=== PATIENT | male | born 1955 | race Caucasian/White ===

== ENCOUNTER → 2016-04-02 | Outpatient (CLI) | payer OTHER ==
[~2016-04-02] MED LIST: AMARYL PO; AMLODIPINE BESYL5 MG PO; ASPIRIN81 MG PO; ATORVASTATIN CA80 MG PO; EFFIENT10 MG PO; FENOFIBRATE200 M1 PO; FLUOXETINE HCL20 M1 PO; GABAPENTIN800 MG PO; HYDROCODON-ACE1 EAC5 PO; HYDROCODONE-APA1 T30 PO; KLONOPIN PO; KLONOPIN1 MG PO; LIPITOR PO; LIPITOR80 MG PO; LISINOPRIL10 MG PO; LISINOPRIL5 MG PO; METFORMIN HCL500 M1 PO; METFORMIN HCL850 MG PO; METOPROLOL SUCC25 MG PO; METOPROLOL SUCC50 MG PO; NIASPAN PO; NITROSTAT0.4 MG SL; NTG 0.4 MG/0.4 MG/M1 SL; PROTONIX PO; PROZAC PO; TRICOR PO
--- NOTE | ~2016-04-02 | XA32 ---
[facility] A Service of [facility] RADIOLOGY TEXT RESULTS PATIENT: YASH BOUDREAUX LOCATION: CIVR : 59 UNIT #: [id number] AGE: [address]: NATE MCKEON SEX: M ORDER DR: [id number] [place] [id number] [facility]. [place], [place] [address] [id number] O MR#: [id number] Acc #: [id number] NAME: YASH BOUDREAUX : 1955 SEX: M STUDY DATE/TIME: 04/02/2016 14:42 UNIT: CIVR ROOM: STUDY DESCRIPTION: XA Arthrogram Shoulder Lt Attending Physician: Nate Mckeon M.D. Primary Care Physician: No Primary Care Physician MEDICAL IMAGING REPORT This report is preliminary unless electronic signature is present EXAM Left shoulder arthrogram INDICATION Left shoulder pain. Patient reports that he injured his left shoulder last summer playing kickball. He reports decreased range of motion. He has had some PT but it is not helping his difficulty raising his arm over his head. PROCEDURE There risks, benefits, and alternatives to the procedure were explained to the patient, and a signed informed consent was obtained. Patient was placed supine on the angiographic table and was prepped and draped in usual sterile fashion. Time-out was performed as per protocol. Skin and these tissues were anesthetized with buffered lidocaine and a 22-gauge spinal needle was advanced into the joint space. Contrast was injected into the joint space which confirmed location. Needle was then removed and manual pressure was applied until hemostasis was obtained. Additional fluoroscopic images were obtained in both the abducted and adducted position. Total fluoroscopy time 0.9 minutes AK was 24 mGy. IMPRESSION Technically successful left shoulder arthrogram. Please see the separately dictated report of the MRI of the left shoulder for full description of the findings. Dictated by... Pily Scott M.D. [facility] A Service of [facility] RADIOLOGY TEXT RESULTS PATIENT: YASH BOUDREAUX LOCATION: CIVR : 59 UNIT #: [id number] AGE: [address]: NATE MCKEON SEX: M ORDER DR: THIS IS AN ELECTRONICALLY VERIFIED REPORT Pily Scott M.D. at 04/04/2016 5:27 PM AFF/aa TD: 04/04/2016 11:57 JOB #: [id number] MEDICAL IMAGING REPORT COPY
--- NOTE | ~2016-04-02 | MR190 ---
[facility] A Service of [facility] & [facility] RADIOLOGY TEXT RESULTS PATIENT: YASH BOUDREAUX LOCATION: CIVR : 59 UNIT #: [id number] AGE: [address]: NATE MCKEON SEX: M ORDER DR: [id number] [facility] [address] [place], [place] [address] [id number] O MR#: [id number] Acc #: [id number] NAME: YASH BOUDREAUX : 1955 SEX: M STUDY DATE/TIME: 04/02/2016 15:13 UNIT: [facility] ROOM: STUDY DESCRIPTION: MR Shoulder Arthrogram Lt Attending Physician: Nate Mckeon M.D. Ordering Physician: Physician Non-Staff Primary Care Physician: Generic Doctor Not In System MRI CENTER REPORT This report is preliminary unless electronic signature is present. EXAM MR arthrogram left shoulder HISTORY 60-year-old male injured left shoulder last summer playing kick ball and complains of decreased range of motion, shoulder pain. No improvement with physical therapy. COMPARISON Conventional arthrogram 04/02/2016 FINDINGS Routine MR arthrogram was performed of the left shoulder following intraarticular injection of dilute gadolinium. Examination demonstrates mild AC joint arthropathy with capsular hypertrophy. Minimal periarticular edema. Marrow signal within the proximal humerus and glenoid appears normal. Contrast distends the glenohumeral joint with abnormal communication to the subacromial-subdeltoid bursa through a full-thickness tear involving the anterior distal aspect of the supraspinatus tendon. The tear is estimated 2.3 cm medial to lateral by 2.6 cm AP dimension. There is also a partial-thickness delaminating component extending into the more posterior aspect of the supraspinatus tendon and this tear is estimated at just over a centimeter. There is also focal imbibition of contrast into the substance of the infraspinatus tendon with communication to a suspected intratendinous cyst along the infraspinatus tendon. The delaminating tear is estimated at about 11 mm in length and communicates to a 1.4 cm cystic appearing structure compatible with an intratendinous cyst. Teres minor and subscapularis tendons appear intact. No muscle atrophy or edema. Minimal degeneration of the superior labrum but no defined tear. The [facility] A Service of [facility] RADIOLOGY TEXT RESULTS PATIENT: YASH BOUDREAUX LOCATION: [facility] : 59 UNIT #: [id number] AGE: [address]: NATE MCKEON SEX: M ORDER DR: biceps anchor and long tendon biceps appears intact. There is suspected biceps tendinopathy. Deltoid and extraarticular soft tissues appear normal. IMPRESSION 1. 2.3 x 2.6 cm full-thickness tear involving the anterior distal insertion of the supraspinatus tendon. 2. Sizable partial-thickness articular-sided tear involving the more posterior supraspinatus tendon measuring well over a centimeter. 3. Partial-thickness delaminating tear undersurface infraspinatus tendon with communication to an intratendinous cyst. 4. Gpid-ki-xgaxerxo AC joint arthropathy with some periarticular edema and inflammation. 5. Mild biceps tendinopathy. Dictated by... Ej Freeman M.D. THIS IS AN ELECTRONICALLY VERIFIED REPORT Ej Freeman M.D. at 04/04/2016 10:25 AM Devora TD: 04/03/2016 11:21 JOB #: [id number] MRI CENTER REPORT COPY
== END | disposition home or self-care (01) ==
LOC: CIVR 13:33
DX: M75.122 Complete rotator cuff tear or rupture of left shoulder, not specified as traumatic (principal); M19.012 Primary osteoarthritis, left shoulder; M75.92 Shoulder lesion, unspecified, left shoulder
CPT/HCPCS: 73040; 73222; 77002; Q9967

== ENCOUNTER → 2016-05-09 | Day surgery (SDC) | payer OTHER ==
--- NOTE | ~2016-05-09 | OR ---
Unit #: [id number] #: [id number] Patient: YASH BOUDREAUX [id number] [address] [address] [id number] O MR#: [id number] NAME: YASH BOUDREAUX ROOM: Date of Procedure: 05/09/2016 Admission Date: 05/09/2016 Surgeon: Hudson Duran M.D. : 1955 Attending Physician: Hudson Duran M.D. Primary Care Physician: Generic Doctor Not In System OPERATIVE REPORT PREOPERATIVE DIAGNOSES 1. Back pain. 2. Radiculopathy. 3. Degenerative disk disease. 4. Degenerative spine disease. POSTOPERATIVE DIAGNOSES 1. Back pain. 2. Radiculopathy. 3. Degenerative disk disease. 4. Degenerative spine disease. PROCEDURE PERFORMED Lumbar epidural steroid injection with intravenous sedation and fluoroscopic guidance for needle localization. INDICATIONS FOR PROCEDURE The patient is a 60-year-old male with previously mentioned diagnosis. He had worsening back and bilateral lower extremity pain left greater than right. Epidural steroids in distant past have been quite helpful. He has been managed medically with a flare of the pain, we were able to settle with conservative measures. Decision was made to re-trial of an epidural steroid injection. Risks and benefits of all have been reviewed. DESCRIPTION OF PROCEDURE The patient was placed in a seated position. Standard monitors were applied. 2 mg of Versed were given for sedation and anxiolysis, which were adequate. Vital signs remained stable. Sterile prep and drape then of the lumbar area was performed. The skin then at the L4-L5 level was localized with 1% lidocaine. An 18-gauge Waviitead needle was then advanced via loss of resistance technique and fluoroscopic guidance in toward the epidural space. After confirming proper needle tip positioning with fluoroscopy and radiographic contrast, 80 mg of Depo-Medrol and 4 mL of 0.125% bupivacaine were deposited. The patient tolerated the procedure otherwise well and was discharged to the recovery room in stable condition. Dictated by... Hudson Duran M.D. LHP/modl Unit #: [id number] #: [id number] Patient: YASH BOUDREAUX TD: 05/10/2016 02:46 JOB #: [id number] OPERATIVE REPORT Page 1 of 1 X Hudson Duran MD X PROCEDURE OPERATIVE NOTE
== END | disposition home or self-care (01) ==
LOC: CCSC 10:17
DX: M51.16 Intervertebral disc disorders with radiculopathy, lumbar region (principal)
CPT/HCPCS: J1040; J2250

== ENCOUNTER 2016-08-19 00:14 | Observation (INO) | payer OTHER ==
--- NOTE | ~2016-08-19 | DS ---
Unit #: [id number] #: [id number] Patient: YASH BOUDREAUX [id number] [address] [address] [id number] I MR#: [id number] NAME: YASH BOUDREAUX ROOM: 547 Age: 61 Sex: M Admission Date: 08/19/2016 : 1955 Discharge Date: 08/20/2016 Attending Physician: Tyler Toussaint M.D. DISCHARGE SUMMARY DISCHARGE DIAGNOSES 1. Atypical chest pain, ruled out for acute coronary syndrome. 2. Abnormal Lexiscan Cardiolite. 3. Known history of coronary artery disease with a past history of inferior wall myocardial infarction and coronary artery stents approximately seven years ago. 4. Hypertension. 5. Hyperlipidemia. 6. Diabetes mellitus. 7. Tobacco abuse. 8. Peripheral artery disease. 9. Chronic obstructive pulmonary disease. DISCHARGE MEDICATIONS 1. Gabapentin 800 mg p.o. t.i.d. 2. Metformin 850 mg p.o. b.i.d. This is not to be resumed until August 23, 2016. 3. Atorvastatin 80 mg p.o. at bedtime. 4. Clonazepam 1 mg p.o. t.i.d. 5. Norvasc 10 mg p.o. daily. 6. Metoprolol succinate 50 mg tablet 1-1/2 tablets daily for a total of 75 mg daily. 7. Lisinopril 10 mg p.o. daily. 8. Aspirin 81 mg p.o. daily. 9. Hydrocodone 10/325 at 1 tab q.4 hours p.r.n. 10. Protonix 40 mg p.o. daily. 11. Nitroglycerin sublingual 0.4 mg q.5 minutes x3 p.r.n. chest pain. HOSPITAL COURSE This is a pleasant 61-year-old male who is typically followed by Dr. Sethi at [facility]. He states he follows with him at the [place] office. The patient has a known history of coronary artery disease with a history of RI and stent x2 in the past, as well as hypertension, hyperlipidemia, diabetes mellitus, chronic pancreatitis, COPD, and tobacco abuse. The patient presented to the hospital with complaints of atypical chest pain, left-sided chest wall, that had occurred at rest. Initial EKG showed no acute ischemia. Cardiac enzymes were negative. It was determined that, due to the patient's high risk profile, repeat ischemic workup was indicated, and the patient was scheduled for a Lexiscan Cardiolite, as well as 2D echocardiogram to rule out any worsening of his cardiovascular disease. The 2D echocardiogram showed mild concentric LVH global, ejection fraction of 50%, basal inferior akinesis, and mid inferior hypokinesis. Moderate eccentric posterior dilated mitral regurgitation was present and mild tricuspid Unit #: [id number] #: [id number] Patient: YASH BOUDREAUX regurgitation. RVSP was 30 mmHg. The patient also underwent Lexiscan adenosine stress test which was abnormal. The patient was scheduled for cardiac catheterization with Dr. Wang today. Results are as follows: LV end-diastolic pressure is 16 mmHg. He has mildly reduced LV function with an LVEF of 45% to 50%. Inferior diaphragmatic wall hypokinesis is noted, but mild nonobstructive disease involving the LAD and the left circumflex. Patent stents in the right coronary artery and the distal RCA stent has 20% in-stent stenosis. Medical therapy was recommended. His hospital course has been otherwise uneventful. CONSULTANTS None. DIAGNOSTIC STUDIES LABORATORY: Glucose 161, BUN 13, creatinine 0.8, sodium 139, potassium 3.7, chloride 105, and CO2 of 25. Troponins have been less than 0.03. Hemoglobin 14.3, hematocrit 43.6, WBC 11.1, and platelet count 125,000. D-dimer 331. IMAGING: Chest x-ray shows heart size and vascularity are normal, lungs are clear, and no active disease. It does show postoperative changes in the C-spine. CARDIOLOGY: EKG shows sinus bradycardia at a rate of 51 beats per minute. There are Q waves present in inferior leads. Nonspecific T wave abnormality is noted. PHYSICAL EXAMINATION GENERAL: This is a pleasant 61-year-old male in no acute distress. VITAL SIGNS: Temperature 98.2, respiratory rate 18-20, pulse 58-60, and blood pressure is 116/74 to 141/86. HEENT: Head is atraumatic and normocephalic. Pupils are equal and round. NECK: Trachea is midline. No thyromegaly, no lymphadenopathy, no JVD. Carotid upstrokes are normal. CARDIOVASCULAR: S1 and S2. No murmur, gallop, or rub. LUNGS: Clear to auscultation. No adventitious breath sounds. No rales, no rhonchi, no wheezes. ABDOMEN: Soft, nontender, and nondistended. Bowel sounds are present. EXTREMITIES: Pulses are palpable. No clubbing, cyanosis, or edema. NEUROLOGIC: He is awake, alert, and oriented. He moves all extremities equally and follows commands with ease. SKIN: Right femoral artery cath site clean, dry, and intact. No signs or symptoms of bleeding or hematoma noted. Site is soft. DISCHARGE INSTRUCTIONS Patient has been seen and evaluated today by myself, as well as Dr. Wang. He underwent cardiac catheterization today which only showed mild obstructive disease involving the LAD and the left circumflex. His stents in the right coronary artery were patent other than the distal RCA stent with 20% in-stent restenosis. His ejection fraction is 45% to 50% per cardiac catheterization and LV end-diastolic pressure is 16 mmHg. Recommendations were suggested to continue with aggressive risk factor modification. We also discussed the importance of smoking cessation with the patient. He denies any chest pain, and the patient is free from any Unit #: [id number] #: [id number] Patient: YASH BOUDREAUX arrhythmias. Dr. Wang states he is free to be discharged home after cath checks are complete which should be after 5 p.m. today. The patient was instructed regarding post-cardiac catheterization instructions, as well as signs and symptoms regarding his cath site. The patient was informed to follow up with his primary care physician in one week, and he will up with Dr. Sethi with [facility], who is his primary rivet passer. Patient was also advised to return to the emergency room if further chest pain occurs or if he has sudden onset bleeding or swelling from his right cath site. He verbalized all instructions willing and agreeable to proceed. Dictated by... Verna Key A.P.R.N. for Shellie Chung/federico TD: 08/20/2016 19:46 JOB #: [id number] DISCHARGE SUMMARY Page 1 of 1 X Verna Key RAIL ASSEMBLER X DISCHARGE SUMMARY
--- NOTE | ~2016-08-19 | CR72 ---
[facility] A Service of [facility] RADIOLOGY TEXT RESULTS PATIENT: YASH BOUDREAUX LOCATION: [facility] 547-01 : [birth year] UNIT #: [id number] AGE: [address]: Tyler Toussaint MD SEX: M ORDER DR: [id number] [facility] [address] [facility] [place], [place] [address] [id number] I MR#: [id number] Acc #: [id number] NAME: YASH BOUDREAUX : 1955 SEX: M STUDY DATE/TIME: 08/19/2016 0:27 UNIT: [facility] ROOM: [facility] STUDY DESCRIPTION: CR Chest Single View Portable Attending Physician: Tylre Toussaint M.D. Ordering Physician: Ed Doctor [id number] [facility] Primary Care Physician: Primary Care Physician No MEDICAL IMAGING REPORT This report is preliminary unless electronic signature is present EXAM Portable chest HISTORY Chest pain for 3 days with shortness of air. COMPARISON 05/09/2013 FINDINGS A portable view of the chest was obtained. The heart size and vascularity are normal and the lungs are clear. The bones are unremarkable except for postoperative changes in the cervical spine. IMPRESSION No active disease. Dictated by... Florentin Galeas M.D. THIS IS AN ELECTRONICALLY VERIFIED REPORT Florentin Galeas M.D. at 08/19/2016 1:35 PM Maureen TD: 08/19/2016 12:44 JOB #: [id number] MEDICAL IMAGING REPORT Page 1 of 1 COPY
--- NOTE | ~2016-08-19 | TH ---
Unit #: [id number] #: [id number] Patient: YASH BOUDREAUX [id number] [address] [address] [id number] I MR#: [id number] NAME: YASH BOUDREAUX : 1955 SEX: M STUDY DATE/TIME: 08/19/2016 UNIT: [id number] ROOM: 547 STUDY DESCRIPTION: Cardiolite imaging. Attending Physician: Tyler Toussaint M.D. Primary Care Physician: No Primary Care Physician CARDIOLOGY REPORT EXAM Cardiolite imaging. INDICATION FOR STUDY Chest discomfort. SUMMARY The patient underwent nuclear stress test and received a resting dose of 9 mCi and stress dose 28.3 mCi. On gated imaging the patient appears to have severely depressed left ventricular ejection fraction. The patient's left ventricular ejection fraction is 31%. The patient also appears to have baseline inferior akinesis and mid to distal inferior wall hypokinesis. On perfusion imaging, comparing rest and stress images, there appears to be a decreased tracer uptake seen in the inferior wall on the rest images, which gets worse on stress images with wall motion abnormality on gated imaging involving the inferior wall. CONCLUSION 1. Moderate sized inferior wall infarct with moderate sized tru-infarct ischemia. 2. Severely depressed left ventricular ejection fraction, 31%. 3. ECG portion dictated separately. 4. Clinical correlation is needed. Dictated by... Shellie Chung/kentrell TD: 08/20/2016 08:36 JOB #: [id number] Unit #: [id number] #: [id number] Patient: YASH BOUDREAUX CARDIOLOGY REPORT Page 1 of 1 X GIOVANY CREWS MD CARDIOLOGY REPORT
--- NOTE | ~2016-08-19 | EKG ---
PATIENT: YASH BOUDREAUX UNIT #: [id number] Ventricular Rate: 51 BPM Atrial Rate: 51 BPM P-R Interval: 142 ms QRS Duration: 96 ms Q-T Interval: 442 ms QTC Calculation(Bezet): 407 ms P [place]: 51 degrees Calculated R [place]: 69 degrees Calculated T [place]: -54 degrees Diagnosis Line: Sinus bradycardia Diagnosis Line: Inferior infarct , age undetermined Diagnosis Line: T wave abnormality, consider lateral ischemia Diagnosis Line: Abnormal ECG Diagnosis Line: When compared with ECG of 19-AUG-2016 12:38, Diagnosis Line: Inferior infarct is now Present Diagnosis Line: Nonspecific T wave abnormality now evident in Diagnosis Line: Anterior leads Diagnosis Line: Confirmed by BEN MCKEON MD ([id number]) on 08/22/2016 Diagnosis Line: 7:56:02 AM INTERPRETING MD: MIKE WISEMAN
--- NOTE | ~2016-08-19 | EKG ---
PATIENT: YASH BOUDREAUX UNIT #: [id number] Ventricular Rate: 73 BPM Atrial Rate: 73 BPM P-R Interval: 132 ms QRS Duration: 90 ms Q-T Interval: 384 ms QTC Calculation(Bezet): 423 ms P [place]: 59 degrees Calculated R [place]: 41 degrees Calculated T [place]: -58 degrees Diagnosis Line: Normal sinus rhythm Diagnosis Line: Possible Inferior infarct (cited on or before Diagnosis Line: 09-MAY-2013) Diagnosis Line: Abnormal ECG Diagnosis Line: When compared with ECG of 25-MAR-2015 03:55, Diagnosis Line: Premature ventricular complexes are no longer Diagnosis Line: Present Diagnosis Line: Confirmed by RONNELL TRUJILLO MD ([id number]) on Diagnosis Line: 08/20/2016 4:02:23 PM INTERPRETING MD: RONNIE WISEMAN
--- NOTE | ~2016-08-19 | CO ---
Unit #: [id number] #: [id number] Patient: YASH BOUDREAUX [id number] [address] [place], [place] [address] [id number] MR#: [id number] NAME: YASH BOUDREAUX ROOM: 547 Age: 61 Sex: M Admission Date: 08/19/2016 : 1955 Attending Physician: Tyler Toussaint M.D. Primary Care Physician: No Primary Care Physician Consultation Date: 08/19/2016 CONSULTATION REPORT REASON FOR CONSULT Chest pain. HISTORY OF PRESENT ILLNESS This is a 61-year-old male who is typically followed by (1) at [facility]. The patient has a known history of coronary artery disease with a history of myocardial infarction and stents times two, hypertension, hyperlipidemia, diabetes mellitus, chronic pancreatitis. He had a cardiac catheterization at [place] in 06/2009, which showed a left main normal, LAD proximal 20%, 30% mid LAD and in D1 there is a 50% ostial stenosis. Circumflex mid was 30% proximal. RCA 30% proximal. Diffuse 90% in-stent restenosis of the distal RCA stent site. The ostial PDA has a 70% stenosis in the ostium, fully covered by the previously deployed stent. Ejection fraction at that time was 30%. The patient did receive PTCA of the distal RCA with a drug-eluting stent at that time in the distal RCA and a PTCA of the ostial PDA. The patient also has a past medical history significant for anxiety, lumbar canal stenosis, as well as some PAD. The patient states he was at home in his typical state of health until yesterday, when he began to notice pain in his anterior chest, initially described as midsternal. This occurred at rest, with radiation into his left chest wall. He does report that he has had a cough as well for the last two to three days, which has been nonproductive in nature, but has been afebrile. He does report associated diaphoresis with the episode, but no radiation down the arm or into the jaw. He denies any nausea or vomiting. On arrival to the emergency room the patient's EKG showed normal sinus rhythm, rate of 73 beats per minute. QTC interval 423 msec. Q waves are present in the inferior leads. He reports the pain is still present in the chest wall, but denies any alleviating or exacerbating factors. However, the patient does notate tenderness on palpation of his left-sided chest wall. At present he is resting in bed. He is in no acute distress. His initial cardiac enzymes have been negative. PAST MEDICAL HISTORY 1. Known coronary artery disease with a history of myocardial infarction and two stents to RCA in 2008 and 2009 at [facility]. 2. Hyperlipidemia. 3. Hypertension. 4. Chronic obstructive pulmonary disease. 5. Chronic back pain. 6. Obesity. 7. Sleep apnea. 8. PAD. Unit #: [id number] #: [id number] Patient: YASH BOUDREAUX 9. Tobacco abuse. 10. Reports some chronic pancreatitis secondary to medication in the past. 11. Anxiety. PAST SURGICAL HISTORY 1. Stents and cardiac catheterization. 2. Cholecystectomy. 3. Colonoscopy. 4. Back surgery. SOCIAL HISTORY The patient reports he is disabled. He lives alone. He denies illicit drugs or alcohol use. He does report tobacco use 2 packs per day for approximately 40 years. FAMILY HISTORY Denies coronary artery disease. Reports a history of cancer in his family. HOME MEDICATIONS 1. Protonix 40 mg p.o. daily. 2. Metformin 850 mg p.o. b.i.d. 3. Lisinopril 10 mg p.o. daily. 4. Amlodipine 5 mg p.o. daily. 5. Metoprolol succinate 50 mg 1.5 tablets daily (75 mg). 6. Atorvastatin 80 mg p.o. daily. 7. Klonopin 1 mg p.o. t.i.d. 8. Hydrocodone/acetaminophen 10/325 mg 1 tablet p.o. q.4 h. 9. Gabapentin 800 mg p.o. t.i.d. REVIEW OF SYSTEMS Negative except for what is stated above in history of present illness. PHYSICAL EXAMINATION GENERAL: This is a pleasant 61-year-old male lying in bed, in no acute distress. VITALS: Temperature 98.0, respiratory rate 15-15, pulse 70, blood pressure 117/67. HEENT: Head is atraumatic, normocephalic. Pupils are equal and round. NECK: Trachea midline. No jugular venous distension. No carotid bruits. No thyromegaly. LUNGS: Scattered wheezing are auscultated. No rales are noted. HEART: S1 and S2. Regular rate and rhythm. No murmur, gallop or rub. ABDOMEN: Obese, soft, nontender and nondistended. EXTREMITIES: No edema. DIAGNOSTIC STUDIES IMAGING: Chest x-ray shows no active disease. LABORATORY: Initial troponin negative. Sodium 135, potassium 3.5, chloride 106, CO2 22, BUN 11, creatinine 0.7, glucose 147, hemoglobin 15.6, hematocrit 47.0, white blood cell count 12.4, platelet count 144. CARDIOVASCULAR: EKG normal sinus rhythm, rate 73 beats per minute, QTC interval 423 msec, inferolateral T wave changes are noted, Q waves are present in the inferior leads. No acute ischemic changes noted. Unit #: [id number] #: [id number] Patient: YASH BOUDREAUX ASSESSMENT 1. Typical chest pain. Rule out acute coronary syndrome. 2. History of coronary artery disease with a past history of inferior wall myocardial infarction with coronary stents times two approximately seven years ago. 3. Hypertension. 4. Hyperlipidemia. 5. Diabetes mellitus. 6. Tobacco abuse. 7. PAD. 8. COPD. PLAN This is a patient who has presented with atypical chest pain. However, he is high risk for obstructive coronary artery disease. He has a history of stents in the past. At this time his initial cardiac enzymes have been negative. For now will keep him n.p.o. and schedule him for a Lexiscan Cardiolite later today, as well as two-dimensional echocardiogram. Will also check a d-dimer to rule out any evidence of PE. The patient will be started on aspirin 81 mg p.o. daily. He will also be continued on his beta schuyler, amlodipine and lisinopril, as well as his statin dose. Will check CBC, BMP in the a.m. if the patient is still present, as well as EKG. He was advised on the importance of risk modification and smoking cessation. If the patient's Lexiscan Cardiolite and ejection fraction are normal, he may be discharged home later today. Further recommendations pending Dr. Wang's assessment. Dictated by... Verna Key A.P.R.N. for Delio Wang M.D. FERNANDO/kentrell TD: 08/19/2016 15:21 JOB #: [id number] CONSULTATION REPORT Page 1 of 1 X Verna Key APRN CONSULTATION REPORT
--- NOTE | ~2016-08-19 | ST ---
Unit #: [id number] #: [id number] Patient: YASH BOUDREAUX [id number] [address] [address] [id number] I MR#: [id number] NAME: YASH BOUDREAUX : 1955 SEX: M STUDY DATE/TIME: 08/19/2016 UNIT: C5B ROOM: 547 STUDY DESCRIPTION: Lexiscan stress test Attending Physician: Tyler Toussaint M.D. Primary Care Physician: No Primary Care Physician CARDIOLOGY REPORT PROCEDURE PERFORMED ECG portion of Lexiscan stress test. INDICATION Chest discomfort. SUMMARY The patient underwent Lexiscan protocol. The patient's resting heart rate is 60 beats per minute, which increased to 96 beats per minute, representing 59% of the maximal age-predicated heart rate. The patient's resting blood pressure was 117/71 mmHg, which increased to 127/70 mmHg. The patient's resting ECG shows normal sinus rhythm with nonspecific ST segment changes and T wave inversions inferolaterally. With stress/Lexiscan infusion, the patient continued to remain in sinus rhythm with continued nonspecific changes. There is no ventricular or supraventricular ectopy noted. There are no pauses noted. CONCLUSIONS 1. Negative ECG portion of Lexiscan stress test for ischemia. 2. Perfusion imaging dictated separately. Dictated by... Giovany Wang M.D. ID/db TD: 08/20/2016 07:38 JOB #: [id number] CARDIOLOGY REPORT Page 1 of 1 X GIOVANY WANG MD CARDIOLOGY REPORT
[~2016-08-19 00:14] MED LIST changes: -ASPIRIN81 MG PO; -NITROSTAT0.4 MG SL
[2016-08-19 00:46] LABS: POC - CKMB 2.3 ng/mL (0.0-7.9); POC - TROPONIN <0.05 ng/mL (<=0.05)
[2016-08-19 00:48] LABS: BASOPHIL# 0.1 X10e3 (0-0.3); BASOPHIL% 0.7 % (0-2.5); EOSINOPHIL# 0.2 X10e3 (0-0.7); EOSINOPHIL% 1.3 % (0.0-7.0); HEMOGLOBIN 15.6 gm/dL (13.0-16.0); LYMPHOCYTE# 2.4 X10e3 (1.0-3.5); LYMPHOCYTE% 19.7 % (17.0-45.0); MEAN CELL VOLUME 85.3 FL (83-96); MEAN CORPUSCULAR HEMOGLOBIN 28.3 PG (28-34); MEAN CORPUSCULAR HGB CONC 33.1 g/dL (30-36); MONOCYTE# 1.3 X10e3 (0-1.0); MONOCYTE% 10.2 % (3.0-12.0); NEUTROPHIL# 8.5 X10e3 (1.5-7.1); NEUTROPHIL% 68.1 % (40-75); PLATELET COUNT 144 X10e3 (140-420); RED BLOOD COUNT 5.51 X10e (3.90-5.60); RED CELL DISTRIBUTION WIDTH 15.2 % (11.0-15.5); WHITE BLOOD COUNT 12.4 X10e3 (4.0-10.5)
[2016-08-19 00:49] LABS: DIFF IND NO
[2016-08-19 01:19] LABS: ALBUMIN SERUM 4.1 g/dL (3.5-5.0); BILIRUBIN, DIRECT 0.1 mg/dL (0.0-0.2); BILIRUBIN,TOTAL 1.1 mg/dL (0.2-2.0); BUN/CREATININE RATIO 15.71; CALCIUM SERUM 8.6 mg/dL (8.4-10.2); CREATININE SERUM 0.7 mg/dL (0.6-1.4); GLOM FILT RATE Estimated 103.3 mL/min (>60); POTASSIUM 3.5 mmol/L (3.5-5.1); PROTEIN TOTAL SERUM 7.4 g/dL (6.0-8.3)
[2016-08-19 02:16] LABS: POC - CKMB 1.9 ng/mL (0.0-7.9); POC - TROPONIN <0.05 ng/mL (<=0.05)
[2016-08-20 06:39] LABS: HEMATOCRIT 43.6 % (38.0-50.0); HEMOGLOBIN 14.3 gm/dL (13.0-16.0); MEAN CORPUSCULAR HEMOGLOBIN 28.2 PG (28-34); MEAN CORPUSCULAR HGB CONC 32.8 g/dL (30-36); MEAN PLATELET VOLUME 11.6 FL (6.5-11.5); RED BLOOD COUNT 5.07 X10e (3.90-5.60); RED CELL DISTRIBUTION WIDTH 15.1 % (11.0-15.5); WHITE BLOOD COUNT 11.1 X10e3 (4.0-10.5)
[2016-08-20 07:01] LABS: BUN/CREATININE RATIO 16.25; CALCIUM SERUM 9.1 mg/dL (8.4-10.2); CREATININE SERUM 0.8 mg/dL (0.6-1.4); GLOM FILT RATE Estimated 97.8 mL/min (>60); POTASSIUM 3.7 mmol/L (3.5-5.1)
[2016-08-20] MEDS ORDERED: ASPIRIN81 MG PO (16:45)
[2016-08-20] MEDS ORDERED: NITROSTAT0.4 MG SL (16:47)
== END 2016-08-20 18:00 | disposition home or self-care (01) ==
LOC: CED 00:14 → C5B 02:07 → CEDOF 02:07 → CED 02:22 → CEDOF 02:22 → C5B 07:40
PROVIDERS: Emergency Medicine; Nurse Practitioner
PROC: 4A023N7 Measurement of Cardiac Sampling and Pressure, Left Heart, Percutaneous Approach (ICD-10-PCS; principal; 2016-08-19)
PROC: B215YZZ Fluoroscopy of Left Heart using Other Contrast (ICD-10-PCS; 2016-08-19)
DX: R07.89 Other chest pain (principal); T82.855A Stenosis of coronary artery stent, initial encounter; R94.39 Abnormal result of other cardiovascular function study; I25.10 Atherosclerotic heart disease of native coronary artery without angina pectoris; Z95.5 Presence of coronary angioplasty implant and graft; I25.2 Old myocardial infarction; I51.9 Heart disease, unspecified; I10 Essential (primary) hypertension; E78.5 Hyperlipidemia, unspecified; E11.9 Type 2 diabetes mellitus without complications; Z79.84 Long term (current) use of oral hypoglycemic drugs; I73.9 Peripheral vascular disease, unspecified; J44.9 Chronic obstructive pulmonary disease, unspecified; F17.200 Nicotine dependence, unspecified, uncomplicated; Z79.899 Other long term (current) drug therapy; Z80.9 Family history of malignant neoplasm, unspecified; Z90.49 Acquired absence of other specified parts of digestive tract
CPT/HCPCS: 36415; 71010; 78452; 80048; 80076; 82553; 82947; 84484; 85025; 85027; 85379; 93005; 93017; 93306; 94640; 94760; 96372; 96374; 99285; A9500; C1760; C1769; G0378; J1644; J1650; J1885; J2250; J2785; J3010

== ENCOUNTER → 2016-10-08 | Outpatient (CLI) | payer OTHER ==
[~2016-10-08] MED LIST changes: +ASPIRIN81 MG PO; +NITROSTAT0.4 MG SL
--- NOTE | ~2016-10-08 | CT57 ---
[facility] A Service of [facility] RADIOLOGY TEXT RESULTS PATIENT: YASH BOUDREAUX [facility] #: [id number] AGE: [address]: CHAN HINES MD SEX: M ORDER DR: [id number] [address] [id number] [facility]. [place], [place] [address] [id number] MR#: [id number] Acc #: [id number] NAME: YASH BOUDREAUX : 1955 SEX: M STUDY DATE/TIME: 10/08/2016 UNIT: [facility] ROOM: STUDY DESCRIPTION: CT Chest Wo Cont Attending Physician: Chan Hines M.D. Referring Physician: Chan Hines M.D. Ordering Physician: Chan Hines M.D. Primary Care Physician: Chan Hines M.D. MEDICAL IMAGING REPORT This report is preliminary unless electronic signature is present EXAM CT chest without contrast 10/08/2016 1004 hours HISTORY 61-year-old man complaining of 1-month history of cough. History of smoking 3 packs per day for 46 years. Hypertension, diabetes and COPD. COMPARISON Chest CT 08/02/2015 TECHNIQUE Helical noncontrasted images were obtained from the thoracic inlet through the adrenal glands. Sagittal and coronal reconstructions were performed. Total exam DLP 750 mGy-cm. This CT exam was performed with one or more of the following radiation dose reduction techniques: automatic exposure control, adjustment of mA and/or kV according to patient size, and iterative reconstruction. FINDINGS Images through the thoracic inlet demonstrate no thyroid lesion or adenopathy. Images through the chest demonstrate normal caliber aorta and pulmonary arteries. Cardiac chambers and pericardium are normal. There are coronary artery calcifications and likely a right-sided coronary stent. There are calcified left hilar nodes unchanged. There are mildly prominent mediastinal nodes which are stable from multiple years and benign. The esophagus is normal. The lungs demonstrate moderate centrilobular emphysema without large blebs or bullae. There is no evidence of pneumonia, edema or interstitial lung disease. [facility] A Service of [facility] RADIOLOGY TEXT RESULTS PATIENT: YASH BOUDREAUX [id number] [birth year] UNIT #: [id number] AGE: [address]: CHAN HINES MD SEX: M ORDER DR: Limited views through the abdomen demonstrate mild prominence of the liver size with low attenuation, unchanged. There is cholecystectomy change. The adrenal glands are normal. IMPRESSION 1. No acute findings in the chest. No change from 08/02/2015. 2. There is moderate underlying centrilobular emphysema without blebs or bullae. There is no nodule, mass or bronchiectasis. 3. Heart size normal. Coronary calcifications are present. The aorta is normal in caliber. 4. Mild prominence of the liver with low density suggesting fatty infiltration. 5. Given the patient's significant history of smoking. Consider initiation of lung cancer screening, low-dose CT protocol. Dictated by... Marixa Castillo M.D. THIS IS AN ELECTRONICALLY VERIFIED REPORT Marixa Castillo M.D. at 10/08/2016 5:26 PM [place] TD: 10/08/2016 14:28 JOB #: [id number] MEDICAL IMAGING REPORT Page 1 of 1 COPY
== END | disposition home or self-care (01) ==
LOC: CCAT 09:21
DX: F17.200 Nicotine dependence, unspecified, uncomplicated (principal); I25.10 Atherosclerotic heart disease of native coronary artery without angina pectoris
CPT/HCPCS: 71250